=== PATIENT | male | born 1980 | race Caucasian/White ===

== ENCOUNTER → 2017-09-02 | Outpatient (CLI) | payer OTHER ==
[~2017-09-02] VITALS: Ht 188 cm; Wt 115.7 kg
[~2017-09-02] MED LIST: FISH OIL 1,0001 EAC5 PO; HYDROCODONE-AP1 EAC6 PO; IBUPROFEN 200200 M1 PO; MUCINEX1200 MG PO; MULTIVITAMINS1 EAC7 PO; NABUMETONE 750750 M1 PO; NOHOMEMEDICATIONS; NORCO 5-325 TA1 EACH PO; PHENERGAN 25 MG25 M1 PO; TYLENOL EXTRA500 MG PO
--- NOTE | ~2017-09-02 | HPC ---
[facility] [place] [address] PAIN MANAGEMENT CONSULTATION Name: LON FERGUSON Room #: REG [facility].#: [id number] Admission: 09/02/17 Attend Phys: Osbaldo Hernandez DO Discharge: Date of : 82 Report #: [id number] THIS REPORT FOR: //name// CC: Meng oGnzales PAIN CLINIC CONSULTATION HISTORY OF PRESENT ILLNESS: The patient is a 37-year-old gentleman seen greater than 3 years ago (12/2013) for lumbar radicular symptoms. He had an epidural injection at that time, was lost to followup. He returns to pain clinic today noting pain recurred in April without antecedent trauma or overuse. Pain is in the low back, left posterior thigh to the calf and down to the ankle. He has tried physical therapy, stretch, hydrocodone and ibrf-wbt-qcreqlj anti-inflammatories with nominal efficacy. He notes the pain is exacerbated with bending and twisting. He gets some relief with walking. He describes constant, shooting, throbbing, stabbing pain. He rates anywhere from 7-10 on visual analog scale. He denies any myelopathic symptoms. No bowel or bladder continence changes or saddle anesthesia. REVIEW OF SYSTEMS: Complete review of systems was attached to the chart and was gone over with the patient. He is . He does not smoke or drink alcohol to excess. He has enjoyed remarkably good health. A 12-point review of systems is essentially noncontributory. 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 His pain impact score is fairly low, averaging 17/70. PHYSICAL EXAMINATION: VITAL SIGNS: Reveals a 7-pswj-0-inch, 255-pound gentleman, BMI is 32.7 kilograms per meter squared. Blood pressure 120/71, pulse is 54 and respirations are 14. NEUROLOGIC: Cranial nerves 2-12 are grossly intact. Pupils equal and reactive to light and accommodation. Extraocular muscles are intact. The patient is generally fit. I do not note any specific weakness; however, he feels some subjective weakness in the left leg. NECK: Thyroid is enlarged. No nodules are noted. EXTREMITIES: Upper extremity strength is symmetric. HEART: Regular and rhythmical, with a grade 1-2/6 systolic ejection murmur. LUNGS: Clear. ABDOMEN: Shows a modestly endomorphic build. MUSCULOSKELETAL: Rises from the chair using armrest. Gait is tandem. Lumbar flexion is limited to about 70 degrees. Tender over the left SI area in particular and low back in general. Achilles reflex is absent on the left. Straight leg raise is positive on the left. Achilles reflex is 1/4 on the right. Patellar reflex is generally symmetric, about 1-2/4. [facility] [address] [place] [address] PAIN MANAGEMENT CONSULTATION Name: LON FERGUSON [id number] Admission: 09/02/17 Attend Phys: Osbaldo Hernandez DO Discharge: Date of : 82 Report #: [id number] SKIN AND INTEGUMENT: Intact. DIAGNOSTIC DATA: Diagnostic studies include MRI from 07/29/2017, notes a broad-based disk at L4-L5, causing some mild compression of the ventral thecal sac, L5-S1; however, it does noted a specific left paracentral focal disk protrusion, projects about 6 mm dorsal to the posterior margin of the L5 vertebral body, causes an impression in the epidural fat. ASSESSMENT: Symptomatic lumbar radiculopathy, acute left L5 distribution. RECOMMENDATIONS: 1. Continue OTC anti-inflammatories (recommend naproxen sodium 440 mg b.i.d). 2. We will seek authorization for lumbar epidural injection under fluoroscopy, left to midline, L5-S1. Thanks for allowing me to participate in the patient's care. I will keep you abreast of his progress. <ELECTRONICALLY SIGNED> By: Osbaldo Hernandez DO 09/05/17 0943 [id number] [id number] Osbaldo Hernandez DO /nt
[2017-09-02 08:56] VITALS: BP 120/71
== END ==
LOC: PAIN 07:04
DX: M54.16 Radiculopathy, lumbar region (principal)

== ENCOUNTER → 2017-09-09 | Outpatient (CLI) | payer OTHER ==
[~2017-09-09] VITALS: Ht 188 cm; Wt 116.6 kg
--- NOTE | ~2017-09-09 | HPC ---
[facility] [place] [address] PAIN MANAGEMENT CONSULTATION Name: MARTYLON DIANE [id number] Admission: 09/09/17 Attend Phys: Osbaldo Hernandez DO Discharge: Date of : 82 Report #: [id number] THIS REPORT FOR: //name// CC: Meng Hernandez DATE OF SERVICE: 09/09/2017 HISTORY OF PRESENT ILLNESS: The patient is a very pleasant 37-year-old gentleman, prior seen in consultation on 09/02/2017, diagnosed with symptomatic lumbar radiculopathy, left L5 distribution. We sought authorization for epidural injection under fluoroscopy. The patient presents to the pain clinic today for this injection. He notes pain continues to be problematic, rates subjective pain score 7 on a VAS, low back, left leg, buttock to foot. ASSESSMENT: Symptomatic lumbar radiculopathy. PROCEDURE: Lumbar epidural injection under fluoroscopy. PROCEDURE NOTE: After both written and informed consent to include risk of spinal cord damage, increased pain, weakness and dural puncture, the patient was taken to the fluoroscopy suite, placed in the prone position. After sterile prep and drape, a skin wheal with lidocaine was raised. A 22-gauge epidural Tuohy needle was inserted in the midline at L5-S1 with good loss to resistance. Negative aspiration for cerebrospinal fluid or blood was noted. Then 1 mL of Omnipaque under biplanar fluoroscopy showed good spread within the epidural space. This was followed with 80 mg of triamcinolone plus 1 mL of 1.5% preservative-free Xylocaine, 0.5 mL Xylocaine was then injected to flush the needle; it was removed. The patient was monitored for an appropriate period of time and discharged in good and stable condition. Follow up in 3 weeks to evaluate efficacy. <ELECTRONICALLY SIGNED> By: Osbaldo Hernandez DO 09/12/17 0830 1523 0155 Osbaldo Hernandez DO /nt
[2017-09-09 13:29] VITALS: BP 122/7
== END | disposition home or self-care (01) ==
LOC: PAIN 07:01
DX: M54.16 Radiculopathy, lumbar region (principal); Z79.891 Long term (current) use of opiate analgesic

== ENCOUNTER → 2017-10-21 | Outpatient (CLI) | payer OTHER ==
[~2017-10-21] VITALS: Ht 188 cm; Wt 111.6 kg
--- NOTE | ~2017-10-21 | HPC ---
[facility] [address] [place] [facility] [place] [address] PAIN MANAGEMENT CONSULTATION Name: MARTYLON DIANE [facility]: [facility] [id number] Admission: 10/21/17 Attend Phys: Osbaldo Hernandez DO Discharge: Date of : 82 Report #: [id number] THIS REPORT FOR: //name// CC: Meng Hernandez DATE OF SERVICE: 10/21/2017 The patient is a very pleasant 37-year-old gentleman, prior seen in the Pain Clinic 09/30/2017. We had done a midline epidural injection at L5-S1 about 6 weeks ago with incremental improvement in baseline pain. Still, however, has pain in the left L5 radicular pain pattern. He is using nabumetone 750 b.i.d. rare hydrocodone 5/325. Presents to the Pain Clinic today for left L5-S1 transforaminal epidural injection as we discussed at the 09/30/2017 visit. Pain continues to be problematic in the left L5 distribution with some paresthesia going into the posterior calf and foot. ASSESSMENT: Symptomatic lumbar radiculopathy. PROCEDURE: 1. Left L5-S1 transforaminal epidural injection under fluoroscopy. 2. Renew hydrocodone 5/325, dispense 60 tablets, 1 tablet q. 4 hours as needed for pain. 3. Renew nabumetone 750 mg b.i.d., 60 tablets with 2 refills. PROCEDURE: Transforaminal lumbar epidural injection under fluoroscopy. PROCEDURE NOTE: After both written and informed consent was obtained including risk of spinal cord damage, infection, increased pain and paralysis, the patient agreed to proceed. The patient was taken to the fluoroscopy suite, placed in a prone position with appropriate abdominal bolstering. After sterile prep with ChloraPrep and sterile drape, a skin wheal with 1% Xylocaine was raised. A 22 gauge 4-1/2 inch epidural Tuohy needle was inserted. From an oblique approach into the posterior-superior aspect of the left L5-S1 neural foramen with continuous pressure on the glass syringe plunger for loss of resistance. Glass syringe was filled with 2 cc of 0.1 Xylocaine. The glass loss of resistance syringe was removed. A low volume extension tubing was connected, negative aspiration was accomplished for cerebrospinal fluid or blood. 1 mL of Omnipaque was injected which showed spread both within the epidural space and laterally along the nerve root. This was followed with 80 mg of triamcinolone plus 1 mL of 1.5% preservative-free Xylocaine. Needle was partially withdrawn, 0.5 mL of Xylocaine was injected to clear the needle and the needle was removed. The [address] [address] PAIN MANAGEMENT CONSULTATION Name: LON FERGUSON Room #: REG [facility]#: [id number] Admission: 10/21/17 Attend Phys: Osbaldo Hernandez DO Discharge: Date of : 82 Report #: [id number] was cleansed, Band-Aid was applied. The patient was allowed to ambulate to the recovery room, discharged in good and stable condition. <ELECTRONICALLY SIGNED> By: Osbaldo Hernandez DO 10/24/17 0709 1323 2226 Osbaldo Hernandez DO /nt
[2017-10-21 13:11] VITALS: BP 136/101
== END | disposition home or self-care (01) ==
LOC: PAIN 07:10
DX: M54.16 Radiculopathy, lumbar region (principal); G89.29 Other chronic pain; Z79.891 Long term (current) use of opiate analgesic; Z98.890 Other specified postprocedural states

== ENCOUNTER → 2017-11-11 | Outpatient (CLI) | payer OTHER ==
[~2017-11-11] VITALS: Ht 188 cm; Wt 109.9 kg
--- NOTE | ~2017-11-11 | HPC ---
[facility] [address] [place] [address] PAIN MANAGEMENT CONSULTATION Name: OLN FERGUSON DIANE [facility]: [facility] [id number] Admission: 11/11/17 Attend Phys: Osbaldo Hernandez DO Discharge: Date of : 82 Report #: [id number] THIS REPORT FOR: //name// CC: Meng Hernandez DATE OF SERVICE: 11/13/2017 The patient is a pleasant 37-year-old gentleman, prior seen in the Pain Clinic on 10/21/2017. We did a left L5-S1 transforaminal epidural injection, continued on some low dose hydrocodone, Relafen 750 b.i.d. Prior injection on 09/09/2017 gave him about 60% overall relief. He returns to Pain Clinic today noting that pain continues about a 4 on a VAS. Radiates in the low back, buttock, left thigh. Reports 45% relief only for about a week and a half following the prior transforaminal injection. He is able to bend forward with less pain overall. Pain is exacerbated with bending or twisting. We reviewed the patient's prior MRI from 12/26/2013. Has a left paracentral disk at L5-S1. Suspect this simply became re-exacerbated. Pain impact score is about 26/70 with pain, notes pain does interfere with function. We discussed today therapeutic options including repeat epidural injection. I did get a newer MRI, 07/29/2017, again shows the left L5-S1 HNP. With ongoing physical exam compatible with L5 radiculopathy, straight leg raise on the left with decreased plantar flexion strength on this side, lumbar flexion is modestly limited. We have elected to seek authorization for repeat left L5-S1 transforaminal epidural injection under fluoroscopy. Continue with nabumetone, physical therapy. Even though he had somewhat suboptimal relief with the second injection, he did have 60% relief with the first injection and his next step is surgery. He would like to repeat the epidural injection, which I think is reasonable. We will seek authorization for same. <ELECTRONICALLY SIGNED> By: Osbaldo Hernandez DO 11/14/17 0706 1552 [id number] Osbaldo Hernandez DO /nt
[2017-11-11 12:34] VITALS: BP 135/77
== END ==
LOC: PAIN 07:17
DX: M54.5 Low back pain (principal); M79.652 Pain in left thigh; M25.552 Pain in left hip

== ENCOUNTER → 2017-11-18 | Outpatient (CLI) | payer OTHER ==
[~2017-11-18] VITALS: Ht 188 cm; Wt 112.2 kg
--- NOTE | ~2017-11-18 | HPC ---
[facility] [place] [address] PAIN MANAGEMENT CONSULTATION Name: LON FERGUSON DIANE [id number] Admission: 11/18/17 Attend Phys: Osbaldo Hernandez DO Discharge: Date of : 82 Report #: [id number] THIS REPORT FOR: //name// CC: Meng Hernandez DATE OF SERVICE: 11/18/2017 PAIN CLINIC PROCEDURE PROCEDURE: Left L5-S1 transforaminal epidural injection. INDICATION: Symptomatic lumbar radiculopathy. CLINICAL EXAMINATION AND HISTORY: The patient prior seen on 11/11/2017 had incremental improvement following 2 prior injections, we sought authorization for #3 epidural injection. We will proceed with injection today. Follow up with Dr. Lucreo for further evaluation. If symptoms continue to be problematic, may recommend referral to neurosurgery for further evaluation. Thank you for allowing me to participate in the patient's care. ASSESSMENT: Symptomatic lumbar radiculopathy, left L5 radicular pattern. PROCEDURE: Left L5-S1 transforaminal epidural injection under fluoroscopy. PROCEDURE NOTE: After both written and informed consent was obtained including risk of spinal cord damage, infection, increased pain and paralysis, the patient agreed to proceed. The patient was taken to the fluoroscopy suite, placed in a prone position with appropriate abdominal bolstering. After sterile prep with ChloraPrep and sterile drape, a skin wheal with 1% Xylocaine was raised. A 22 gauge 4-1/2 inch epidural Tuohy needle was inserted. From an oblique approach into the posterior-superior aspect of the left L5-S1 neural foramen with continuous pressure on the glass syringe plunger for loss of resistance. Glass syringe was filled with 2 cc of 0.1 Xylocaine. The glass loss of resistance syringe was removed. A low volume extension tubing was connected, negative aspiration was accomplished for cerebrospinal fluid or blood. 1 mL of Omnipaque was injected which showed spread both within the epidural space and laterally along the nerve root. This was followed with 80 mg of triamcinolone plus 1 mL of 1.5% preservative-free Xylocaine. Needle was partially withdrawn, 0.5 mL of Xylocaine was injected to clear the needle and the needle was removed. The [facility] [address] [place] [address] PAIN MANAGEMENT CONSULTATION Name: MARTYLON Room #: [facility] [id number] Admission: 11/18/17 Attend Phys: Osbaldo Hernandez DO Discharge: Date of : 82 Report #: [id number] was cleansed, band-aid was applied. The patient was allowed to ambulate to the recovery room, discharged in good and stable condition. <ELECTRONICALLY SIGNED> By: Osbaldo Hernandez DO 11/21/17 0659 1456 01 Osbaldo Hernandez, DO /nt
[2017-11-18 13:31] VITALS: BP 142/91
== END | disposition home or self-care (01) ==
LOC: PAIN 07:02
DX: M54.16 Radiculopathy, lumbar region (principal); G89.29 Other chronic pain; Z98.890 Other specified postprocedural states

== ENCOUNTER → 2018-04-18 | Outpatient (CLI) | payer OTHER ==
[~2018-04-18] VITALS: Ht 188 cm; Wt 114.7 kg
--- NOTE | ~2018-04-18 | HPC ---
[address] [address] PAIN MANAGEMENT CONSULTATION Name: LON FERGUSONN Room #: REG [facility].#: [id number] Admission: 04/18/18 Attend Phys: Aram Hernandez DO Discharge: Date of : 82 Report #: [id number] THIS REPORT FOR: //name// CC: Meng Lucero DO Aram Hernandez DATE OF SERVICE: 04/18/2018 CHIEF COMPLAINT: Low back pain, left lower extremity pain and paresthesias. HISTORY OF PRESENT ILLNESS: As you know, the patient is a 38-year-old male with longstanding history of low back pain, left lower extremity pain with paresthesias. The patient states pain began approximately 05/2017. He denies specific injury or trauma that may have led to symptom development. He returns today in followup visit requesting to undergo a lumbar epidural injection under fluoroscopic guidance for which he indicates good and prolonged efficacy from the previous injection of approximately 65%, lasting for 6 months. He returns requesting to undergo this epidural injection understanding preauthorization will be necessary. He is also requesting a refill of his hydrocodone for pain control as he awaits this injection. 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 He denies new injury, new trauma or any changes in medical history since our last visit. ALLERGIES: No known drug allergies. CURRENT MEDICATIONS: Acetaminophen 500 mg 3 times a day, guaifenesin 1200 mg twice a day, nabumetone 750 mg twice a day, hydrocodone 5/325 one tab every 6 hours p.r.n. for pain. SOCIAL HISTORY: The patient reports he is nonsmoker, nondrinker. He does not participate in any illegal drug use. 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 He is working, not receiving workmen's compensation, unaccompanied today. IMAGING: No new imaging available. PHYSICAL EXAMINATION: VITAL SIGNS: Blood pressure 142/82, pulse 83, respiratory rate 18 and unlabored. The patient is 97% on room air, height 6 feet 2 inches tall, weight 252.8 pounds, BMI calculated 32.4. GENERAL: Well-developed, well-nourished, well-hydrated, 38-year-old male. He appears stated age, placing current pain score 7/10. HEENT: Normocephalic, atraumatic. Pupils equal, round, reactive to light. Extraocular muscles are intact. Sclerae nonicteric without injection. NEUROLOGIC: Cranial nerves 2-12 grossly intact. EXTREMITIES: Show no clubbing, no cyanosis, no edema. [address] [address] PAIN MANAGEMENT CONSULTATION Name: LON FERGUSON DIANE Room #: REG [facility]..#: [id number] Admission: 04/18/18 Attend Phys: Aram Hernandez DO Discharge: Date of : 82 Report #: [id number] MUSCULOSKELETAL: Lower extremity strength appears equal and symmetrical 5/5. Muscle bulk and tone appears equal and symmetrical in comparing left lower extremity to right. Seated straight leg raising negative. Supine straight leg raising positive on the left. JEEVAN test negative. Gait mildly antalgic favoring left lower extremity over right. ASSESSMENT: 1. Symptomatic lumbar radiculopathy. 2. Displacement of lumbar intervertebral disk with radiculopathy. 3. Lumbosacral spondylosis with radiculopathy. 4. Chronic intractable pain. PLAN: 1. The patient has returned today in followup visit requesting to undergo next in the series of transforaminal epidural injection to address lumbar radicular symptoms involving left lower extremity. The patient reports 65% improvement in overall pain lasting for 6 months with the previous injection. He returns today in followup visit requesting to begin the authorization process immediately. I advised the patient this may take anywhere from 4-7 working days, begin this process immediately. Once we have achieved this authorization, we will have the patient return to undergo epidural injection under fluoroscopic guidance to address left L5 nerve root distribution of lumbar radiculopathy. 2. The patient will be started on hydrocodone 5/325 one tab p.o. q. 6 hours p.r.n. for pain. I have given the patient #60 tablets, advised the patient to take this medication only when pain is intolerable, not to rely on this medication prophylactically. He was given a prescription of #60 tablets to fill immediately. He has been on this medication in the past. He is not opioid naive and he notes good benefit with its use. I have advised the patient not drive or operate heavy equipment while on this medication. He is to watch for side effects of somnolence, decreased mental acuity, disorientation, confusion, mental slowing and constipation. If he notes any side effects, discontinue immediately. 3. We will see the patient back in followup visit to undergo left L5-S1 transforaminal epidural injection to address lumbar radicular symptoms. <ELECTRONICALLY SIGNED> By: Aram Hernandez DO 04/19/18 0855 0842 Aram Hernandez DO /nt
[2018-04-18 13:08] VITALS: BP 142/82
== END ==
LOC: PAIN 11:58
DX: M47.27 Other spondylosis with radiculopathy, lumbosacral region (principal); G89.4 Chronic pain syndrome

== ENCOUNTER → 2018-10-25 | Outpatient (CLI) | payer OTHER ==
[~2018-10-25] VITALS: Ht 188 cm; Wt 110.7 kg
[~2018-10-25] MED LIST changes: +HYDROCODON-ACE1 EAC7 PO
[2018-10-25 08:22] VITALS: BP 121/71
--- NOTE | 2018-10-25 08:25 | NUR ---
Pain Clinic Assessment: 1. History of Osteoarthritis: Not Applicable History of Rheumatoid Arthritis: Not Applicable 2. Height: 6 ft. 2 in. 188.0 cm. Weight: 244.0 lb. oz. 110.678 kg. Patient's BMI: 31.3 3. Vital Signs: BP: 121/71 Pulse: 71 Resp: 14 Temp: 02 Sat: 98 ECG Mon: 4. Pain Intensity: 6 5. Fall Risk: Dizziness: N Needs help standing or walking: N Fallen in the last 3 months: N Fall risk comments: 6. Patient on Blood Thinner: None 7. History of Hypertension: N 8. Opioid Therapy greater than 6 weeks: N Opiate Contract Signed: 9. Risk Assessment Tool Provided: MODERATE RISK 10/20 10. Functional Assessment Tool: 11. Recreational Drug Use: Never Drug Type: Tobacco Use: Never Smoker Tobacco Type: Amount or Packs/day: How Many Years: Alcohol Use: No Frequency: Quant:
--- NOTE | 2018-11-01 12:16 | HPC ---
[facility] [place] [address] PAIN MANAGEMENT CONSULTATION Name: LON FERGUSONN Room #: REG [facility].#: [id number] Admission: 10/25/18 ������������������ Attend Phys: Aram Hernandez DO Discharge: ������������������ Date of : 82 Report #: [id number] THIS REPORT FOR: //name// CC: Meng Lucero DO Aram Hernandez DATE OF SERVICE: 10/25/2018 CHIEF COMPLAINT: Low back pain, left lower extremity pain and paresthesias. HISTORY OF PRESENT ILLNESS: As you know, the patient is a very pleasant 38-year-old male with longstanding history of low back pain and lower extremity symptoms with paresthesia. The patient does very well with previous epidural injections, returning today in followup visit stating he wishes to undergo next in the series of epidural injections under fluoroscopic guidance. He is placing pain score at 6/10. He indicates pain is shooting, aching and sharp, exacerbated with standing, getting out of bed and certain activities, improves with medications and walking. Previous lumbar epidural injection provided upwards of 80% improvement in overall pain lasting for nearly 6 months. He returns today in followup visit to begin the process of preapproval to undergo next in the series of lumbar epidural injections to address lumbar radicular symptoms. ALLERGIES: NO KNOWN DRUG ALLERGIES. CURRENT MEDICATIONS: Hydrocodone, nabumetone, guaifenesin, acetaminophen. SOCIAL HISTORY: The patient denies tobacco, alcohol, IV or illicit drug use. He is working, not receiving workmen's compensation, unaccompanied today. IMAGING: No new imaging available. PHYSICAL EXAMINATION: VITAL SIGNS: Blood pressure 121/71, pulse 71, respiratory rate 14 and unlabored. The patient is saturating 98% on room air. Height 6 feet 2 inches tall, weight 244 pounds, BMI calculated 31.3. GENERAL: Well-developed, well-nourished, well-hydrated 38-year-old male, appearing stated age, placing current pain score at 6/10. HEENT: Normocephalic, atraumatic. Pupils equal, round, reactive to light. EXTREMITIES: Show no clubbing, no cyanosis and no edema. MUSCULOSKELETAL: Lower extremity strength appears equal and symmetrical, 5/5. Slight giveaway strength noted on the left when compared to the right with hip flexion causing increasing buttock and posterolateral thigh pain. Muscle bulk and tone is symmetrical in comparing left lower extremity to right. Seated straight leg raising mildly positive, left. Supine straight leg raising [address] [address] PAIN MANAGEMENT CONSULTATION Name: LON FERGUSON Room #: REG [facility].#: [id number] Admission: 10/25/18 ������������������ Attend Phys: Aram Hernandez DO Discharge: ������������������ Date of : 84 Report #: [id number] positive, left. Renny's test negative. Modified Gaenslen's positive for axial low back pain. ASSESSMENT: 1. Symptomatic lumbar radiculopathy. 2. Displacement of lumbar intervertebral disk with radiculopathy. 3. Lumbosacral spondylosis with radiculopathy. 4. Chronic intractable pain. PLAN: 1. The patient returns today in followup visit to begin the authorization process to undergo next in the series of lumbar epidural injections. The patient was advised this could take anywhere from 4-7 working days to begin this process immediately. Once we have achieved authorization, we will have the patient return to undergo next in the series of lumbar epidural injections. We are pleased to see the patient had done well with the initial epidural injection providing 80% improvement in overall pain lasting for nearly 6 months. We are hopeful the patient will see similar improvement with the proposed procedure. 2. No medication changes made at today's visit. We did provide him a refill of his hydrocodone 5/325 one tablet p.o. q. 6 hours p.r.n. for pain, I have given the patient #60 tablets, advised to take the medication only as directed. He is not to rely on the medication prophylactically. He has not been taking this medication consistently and I do not feel he will need it longterm. 3. We will see the patient back in followup visit once we have achieved authorization to undergo lumbar epidural injection under fluoroscopic guidance to address lumbar radicular symptoms. ��������������������������������������������� <ELECTRONICALLY SIGNED> ���������������������������������������� By: Aram Hernandez DO ��������������������������������������������� 11/01/18 1216 1132 1843 Aram Hernandez DO /nt
== END ==
LOC: PAIN 06:44
DX: M47.27 Other spondylosis with radiculopathy, lumbosacral region (principal); M51.16 Intervertebral disc disorders with radiculopathy, lumbar region; G89.29 Other chronic pain